=== PATIENT | male | born 1975 | race Caucasian/White ===

== ENCOUNTER 2022-05-30 15:47 | Emergency (ER) | payer SELFPAY ==
[2022-05-30 16:09] VITALS: BP 153/78; PULSE 84; RESP 18; TEMP 36.6; O2SAT 99
--- NOTE | 2022-05-30 16:27 | ED.EAR ---
HPI - Ear Problem General Chief complaint: Ear Stated complaint: something in ear Time Seen by Provider: 05/30/22 16:23 History of Present Illness HPI Narrative: 46-year-old male presents the emergency room for evaluation of possible insect in his right ear. Patient states making hears something scratching and moving around in his right ear. Related Data Allergies Allergy/AdvReac Type Severity Reaction Status Date / Time No Known Allergies Allergy Unverified 11/14/18 14:18 Review of Systems Review of Systems: CONSTITUTIONAL: Denies fever, chills, or sweats. EYES: Denies visual changes, redness, or discharge. ENT: Reports foreign body right ear CARDIOVASCULAR: Denies chest pain, palpitations, or edema. RESPIRATORY: Denies cough or dyspnea. GASTROINTESTINAL: Denies abdominal pain, nausea, vomiting, or diarrhea. GENITOURINARY: Denies dysuria or hematuria. SKIN: Denies rash or itching. MUSCULOSKELETAL: Denies back pain, joint pain, or myalgia. NEUROLOGIC: Denies headache, numbness, dizziness, or weakness. PSYCHIATRIC: Denies anxiety or depression. Exam Narrative: GENERAL: Well-appearing, well-nourished, no physical limitations, and in no acute distress. HEAD: Normocephalic, atraumatic. EYES: Conjunctivae normal, PERRLA and EOMI. ENT: Right ear: Insect noticed in ear canal. CHEST: Clear to auscultation. No respiratory distress. No wheezes rales or rhonchi. No tenderness. HEART: Regular rate and rhythm. No murmur heard. Normal peripheral pulses. EXTREMITIES: Normal range of motion. No edema. No clubbing or cyanosis SKIN: Warm, dry, no rash. No noted wounds NEURO: No focal deficits. Alert and oriented x3. MAEW. CN's II-XI intact bilaterally, normal gait PSYCH: Cooperative. Normal mood and affect. Course Vital Signs Vital signs: Vital Signs Temperature 36.6 C 05/30/22 16:09 Pulse Rate 84 05/30/22 16:09 Respiratory Rate 18 05/30/22 16:09 Blood Pressure 153/78 H 05/30/22 16:09 Pulse Oximetry 99 05/30/22 16:09 Oxygen Delivery Room Air 05/30/22 16:09 Temperature 36.6 C 05/30/22 16:09 Pulse Rate 84 05/30/22 16:09 Respiratory Rate 18 05/30/22 16:09 Blood Pressure 153/78 H 05/30/22 16:09 Pulse Oximetry 99 05/30/22 16:09 Oxygen Delivery Room Air 05/30/22 16:09 Procedures FB Removal Ear Foreign Body #1: Foreign Body Removal Date: 05/30/22 Foreign Body Removal Time: 16:30 Location: ear canal (R) Foreign Body Suspected: insect TM intact pre-procedure: yes Foreign Body Removed: yes Foreign Body Removal Technique: irrigation Tympanic Membrane Intact Post Procedure: Yes Patient Tolerated Procedure: well Complications: none Medical Decision Making Vital Signs Vital Signs: Vital Signs Temperature 36.6 C 05/30/22 16:09 Pulse Rate 84 05/30/22 16:09 Respiratory Rate 18 05/30/22 16:09 Blood Pressure 153/78 H 05/30/22 16:09 Pulse Oximetry 99 05/30/22 16:09 Oxygen Delivery Room Air 05/30/22 16:09 Temperature 36.6 C 05/30/22 16:09 Pulse Rate 84 05/30/22 16:09 Respiratory Rate 18 05/30/22 16:09 Blood Pressure 153/78 H 05/30/22 16:09 Pulse Oximetry 99 05/30/22 16:09 Oxygen Delivery Room Air 05/30/22 16:09 Discharge Plan Discharge Clinical Impression: Acute foreign body of right ear canal Patient Disposition: Home, Self-Care Condition: Stable Instructions: Antibiotic Form, Ear Foreign Body (ED) Additional Instructions: Follow-up with your primary care physician as needed. Follow-up/Referrals: Janine,Gina Crews MD [Primary Care Provider] - Time of Disposition: 16:31
== END 2022-05-30 17:21 | disposition home or self-care (01) ==
LOC: ANHED 17:18
PROVIDERS: Emergency Provider Nurse Practitioner Family; PCP Internal Medicine
DX: T16.1XXA Foreign body in right ear, initial encounter (principal)
CPT/HCPCS: 99282

== ENCOUNTER 2022-06-04 18:18 | Emergency (ER) | payer SELFPAY ==
[2022-06-04 18:31] VITALS: BP 147/119; PULSE 100; RESP 16; TEMP 36.5; O2SAT 95
--- NOTE | 2022-06-04 19:09 | ED.EAR ---
HPI - Ear Problem General Chief complaint: Ear Stated complaint: something is in my ear Time Seen by Provider: 06/04/22 18:40 History of Present Illness HPI Narrative: 46-year-old male presents the emergency room for evaluation of a possible foreign body in his left ear. Patient states that he is experiencing hearing changes, muffled hearing, and sensation that something was moving around in his ear canal since yesterday. Denies any drainage Related Data Allergies Allergy/AdvReac Type Severity Reaction Status Date / Time No Known Allergies Allergy Unverified 11/14/18 14:18 Review of Systems Review of Systems: CONSTITUTIONAL: Denies fever, chills, or sweats. EYES: Denies visual changes, redness, or discharge. ENT: Reports hearing changes to left ear CARDIOVASCULAR: Denies chest pain, palpitations, or edema. RESPIRATORY: Denies cough or dyspnea. GASTROINTESTINAL: Denies abdominal pain, nausea, vomiting, or diarrhea. GENITOURINARY: Denies dysuria or hematuria. SKIN: Denies rash or itching. MUSCULOSKELETAL: Denies back pain, joint pain, or myalgia. NEUROLOGIC: Denies headache, numbness, dizziness, or weakness. PSYCHIATRIC: Denies anxiety or depression. Exam Narrative: GENERAL: Well-appearing, well-nourished, no physical limitations, and in no acute distress. HEAD: Normocephalic, atraumatic. EYES: Conjunctivae normal, PERRLA and EOMI. ENT: External nose normal, Nares clear, no rhinorrhea or epistaxis. Mucous membranes moist. Oropharynx without tonsillar CHEST: Clear to auscultation. No respiratory distress. No wheezes rales or rhonchi. No tenderness. HEART: Regular rate and rhythm. No murmur heard. Normal peripheral pulses. EXTREMITIES: Normal range of motion. No edema. No clubbing or cyanosis SKIN: Warm, dry, no rash. No noted wounds NEURO: No focal deficits. Alert and oriented x3. MAEW. CN's II-XI intact bilaterally, normal gait PSYCH: Cooperative. Normal mood and affect. Course Vital Signs Vital signs: Vital Signs Temperature 36.5 C 06/04/22 18:31 Pulse Rate 100 06/04/22 18:31 Respiratory Rate 16 06/04/22 18:31 Blood Pressure 147/119 H 06/04/22 18:31 Pulse Oximetry 95 06/04/22 18:31 Oxygen Delivery Room Air 06/04/22 18:31 Temperature 36.5 C 06/04/22 18:31 Pulse Rate 100 06/04/22 18:31 Respiratory Rate 16 06/04/22 18:31 Blood Pressure 147/119 H 06/04/22 18:31 Pulse Oximetry 95 06/04/22 18:31 Oxygen Delivery Room Air 06/04/22 18:31 Procedures FB Removal Ear Foreign Body #1: Foreign Body Removal Date: 06/04/22 Foreign Body Removal Time: 19:19 Location: ear canal (L) Foreign Body Suspected: insect TM intact pre-procedure: yes Foreign Body Removed: yes Foreign Body Removal Technique: irrigation Tympanic Membrane Intact Post Procedure: Yes Patient Tolerated Procedure: well Complications: none Additional Comments: ear canal erythematous Medical Decision Making Vital Signs Vital Signs: Vital Signs Temperature 36.5 C 06/04/22 18:31 Pulse Rate 100 06/04/22 18:31 Respiratory Rate 16 06/04/22 18:31 Blood Pressure 147/119 H 06/04/22 18:31 Pulse Oximetry 95 06/04/22 18:31 Oxygen Delivery Room Air 06/04/22 18:31 Temperature 36.5 C 06/04/22 18:31 Pulse Rate 100 06/04/22 18:31 Respiratory Rate 16 06/04/22 18:31 Blood Pressure 147/119 H 06/04/22 18:31 Pulse Oximetry 95 06/04/22 18:31 Oxygen Delivery Room Air 06/04/22 18:31 Discharge Plan Discharge Clinical Impression: Acute foreign body of left ear canal Patient Disposition: Home, Self-Care Condition: Stable Prescriptions: New ciprofloxacin-dexamethasone [Ciprodex] 0.3-0.1 % drops,suspension 4 drp LEFT EAR Q12H Qty: 7.5 0RF Follow-up/Referrals: Janine,Gina Crews MD [Primary Care Provider] - Time of Disposition: 19:11
[2022-06-04 19:40] VITALS: BP 146/99; PULSE 80; RESP 16; TEMP 36.3; O2SAT 98
== END 2022-06-04 19:42 | disposition home or self-care (01) ==
LOC: ANHED 19:28
PROVIDERS: Emergency Provider Nurse Practitioner Family; PCP Internal Medicine
DX: T16.2XXA Foreign body in left ear, initial encounter (principal); X58.XXXA Exposure to other specified factors, initial encounter
CPT/HCPCS: 69200; 99283